=== PATIENT | female | born 1945 | race Caucasian/White ===

== ENCOUNTER → 2021-07-03 | Day surgery (SDC) | payer OTHER ==
[~2021-07-03] MED LIST: CARDURA2 MG PO; COREG25 MG PO; HYDROCODON-ACE1 EAC6 PO; PRINIVIL20 MG PO; XANAX0.5 MG PO
== END | disposition home or self-care (01) ==
LOC: OR 07:44
DX: M51.16 Intervertebral disc disorders with radiculopathy, lumbar region (principal); M96.1 Postlaminectomy syndrome, not elsewhere classified; F17.210 Nicotine dependence, cigarettes, uncomplicated; Z79.891 Long term (current) use of opiate analgesic; Z79.899 Other long term (current) drug therapy; Z20.822 Contact with and (suspected) exposure to COVID-19
CPT/HCPCS: 76000; J1040; Q9967; U0002